=== PATIENT | female | born 1975 | race Caucasian/White ===

== ENCOUNTER → 2020-06-27 | Outpatient (CLI) | payer OTHER ==
[~2020-06-27] MED LIST: CIPRO500 MG PO; IBUPROFEN800 MG PO; PYRIDIUM200 MG PO
== END | disposition home or self-care (01) ==
LOC: MRI 09:47
PROVIDERS: ATTEND Orthopaedic Surgery
DX: M79.641 Pain in right hand (principal); M25.561 Pain in right knee
CPT/HCPCS: 73721